=== PATIENT | male | born 1945 | race Caucasian/White ===

== ENCOUNTER 2016-12-10 09:14 | Day surgery (SDC) | payer OTHER ==
[~2016-12-10 09:14] MED LIST: BUPIVACAINE 0.5% 30 ML SDV ONE; LIDOCAINE 1% 300 MG/30 ML SDV ONE; MIDAZOLAM 2 MG/2 ML VIAL IVP ONE; PROPOFOL 200 MG/20 ML VIAL ONE; ROCURONIUM 50 MG/5 ML VIAL ONE; fentaNYL 100 MCG/2 ML INJ ONE
[2016-12-10] MEDS ORDERED: ceFAZolin 2 GM/DEXTROSE 100 ML IV ONE (09:41)
--- NOTE | 2016-12-10 09:46 | PDGENHP ---
History and Physical History and Physical: HPI: 71 y/o male with h/o left groin bulge. Worse with activity, improves with rest. Pawan po normally, no change in bowel habits. PMHx: MS, CAD, RENE, HTN, elevated lipids PSHx: Pilonidal cyst excision Meds: NTG, Gilenya, Zantac, Norvasc, Lipitor, Diovan All: albumin, interferon, lisinopril PE: Alert, NAD RRR CTA B Abd soft, NTTP LIH, reducible A/P: LIH. Plan for open LIHR under MAC. Risks/benefits reviewed with patient and family. Risks of not operating explained, questions answered.
--- NOTE | 2016-12-10 10:01 | PDANEPAE ---
ANE History of Present Illness 71 year old male with Left Inguinal Hernia. PMH significant for CAD, HTN, RENE on CPAP nightly, obesity. His last cardiac catheterization was 12/10/2014. He has been on norvasc and diovan without complication. He denies URI last 6 weeks. He also has a history of multiple sclerosis however has not had any exacerbations in the last 6 weeks. ANE Past Medical History - Cardiovascular History Hx Hypertension: Yes Hx Arrhythmias: No Hx Chest Pain: No Hx Coronary Artery / Peripheral Vascular Disease: Yes Hx CHF / Valvular Disease: No Hx Palpitations: No - Pulmonary History Hx COPD: No Hx Asthma/Reactive Airway Disease: No Hx Recent Upper Respiratory Infection: No Hx Oxygen in Use at Home: No - Neurologic History Hx Cerebrovascular Accident: No Hx Seizures: No Hx Dementia: No - Endocrine History Hx Diabetes: No - Renal History Hx Renal Disorders: No - Liver History Hx Hepatic Disorders: No - Neurological & Psychiatric Hx Hx Neurological and Psychiatric Disorders: No - Cancer History Hx Cancer: No - Congenital Disorder History Hx Congenital Disorders: No - GI History Hx Gastrointestinal Disorders: No - Chronic Pain History Chronic Pain: Yes (LT ING HERNIA) ANE Review of Systems - Exercise capacity METS (RN): 4 METS ANE Patient History - Allergies Allergies/Adverse Reactions: albumin human [From Rebif (with albumin)] Allergy (Verified 11/29/16 10:18) interferon beta-1a [From Rebif (with albumin)] Allergy (Verified 11/29/16 10:18) - Home Medications Home Medications: Aspirin [Aspirin 81mg (*)] 81 mg PO DAILY 12/10/14 [Last Taken 12/09/14] Atorvastatin Calcium [Lipitor 40 mg (*)] 40 mg PO DAILY06 12/10/14 [Last Taken 12/10/16 06:00] Fingolimod HCl [Gilenya] 0.5 mg PO HS 12/10/14 [Last Taken 12/09/14] Multivitamins [Multivitamin (*)] 1 each PO DAILY 12/10/14 [Last Taken Unknown] Sildenafil Citrate [Viagra 50 MG (*)] 50 mg PO AD PRN 12/10/14 [Last Taken Unknown] Valsartan/Hydrochlorothiazide [Diovan Hct 160-25 mg Tablet] 2 each PO DAILY AT 8PM 12/10/14 [Last Taken 12/09/14] amLODIPine BESYLATE [Norvasc 5 mg (*)] 5 mg PO DAILY06 12/10/14 [Last Taken ] Herbal Drugs DAILY 11/29/16 [Last Taken Unknown] - Smoking Hx Smoking Status: Never smoked ANE Labs/Vital Signs - Vital Signs Height: 165.1 cm Weight: 97.522 kg ANE Physical Exam - Airway Mallampati Score: Class 1 Mouth exam: normal dental/mouth exam, poor dentition - Pulmonary Pulmonary: no respiratory distress - Cardiovascular Cardiovascular: regular rate and rhythym - ASA Status ASA Status: III ANE Anesthesia Plan Urgent/Emergent Case: Diana landeros completed preop but documented later for safe timely pt care
[2016-12-10 10:02] VITALS: PULSE 81
[2016-12-10] MEDS ORDERED: LIDOCAINE 1% 2 ML INJ ONE (10:03)
[2016-12-10] MEDS ORDERED: LR 1,000 ML IV ONE (10:20)
[2016-12-10] MEDS ORDERED: LIDOCAINE 1% 2 ML INJ ID PRN (10:20)
[2016-12-10] MEDS ORDERED: PROPOFOL/EMULSION 500 MG/50 ML BOTTLE IV ONE (10:35)
[2016-12-10] MEDS ORDERED: NALOXONE HCL 0.4 MG/ML INJ IVP PRN (11:39)
[2016-12-10] MEDS ORDERED: OXYCODONE/APAP 5/325 TAB PO PRN (11:39)
[2016-12-10] MEDS ORDERED: ONDANSETRON 4 MG/2 ML VIAL IVP PRN (11:39)
[2016-12-10] MEDS ORDERED: LR 500 ML IV PRN (11:39)
[2016-12-10] MEDS ORDERED: fentaNYL 100 MCG/2 ML INJ IVP PRN (11:39)
--- NOTE | 2016-12-10 11:40 | POSTANESTH ---
Post Anesthetic Evaluation Cardiovascular Status: Normal, Stable Respiratory Status: Normal, Stable Level of Consciousness/Mental Status: Mildly Sleepy, Arousable Pain Control: Adequate, Prn Tx Ordered Nausea/Vomiting Control: Adequate, Prn Tx Ordered Complications Possibly Related to Anesthesia: None Noted
--- NOTE | 2016-12-10 12:02 | POSTOPPROG ---
Post Op Note Date of Operation: 12/10/16 Surgeon: Kyler Adan Anesthesiologist: Dr. Sherwood Anesthesia: IV Sedation Pre-op Diagnosis: LIH Post-op Diagnosis: LIH Procedure: LIHR Findings: Large direct hernia Inf/Abcess present in the surg proc area at time of surgery?: No EBL: Minimal
[2016-12-10 12:15] VITALS: TEMP 97.7
[2016-12-10 12:16] VITALS: RESP 6
--- NOTE | 2016-12-10 12:58 | GOP ---
[f rep st] OPERATIVE REPORT DATE OF OPERATION: 12/10/2016 SURGEON: Deepak Adan MD ANESTHESIA: Monitored anesthetic care. ANESTHESIOLOGIST: Emerita Franco MD. PREOPERATIVE DIAGNOSIS: Left inguinal hernia. POSTOPERATIVE DIAGNOSIS: Left inguinal hernia. PROCEDURE PERFORMED: Open left inguinal hernia repair. FINDINGS: Patient had a large direct hernia. No other lesions were identified. ESTIMATED BLOOD LOSS: 20 cc. INDICATIONS: 71-year-old male with a history of left groin bulge. Risks and benefits of procedure were discussed with patient's family. Their questions were answered. They wished to proceed. DESCRIPTION OF PROCEDURE: The patient was placed in the supine position. After the induction of ad equate IV sedation, the patient was prepped and draped in the standard surgical fashion. Marcaine 0 .5% was injected throughout the left groin for local anesthesia. An oblique incision was made and ca rried to the subcutaneous tissue using cautery. The external oblique was incised in the direction o f its fibers. The cord was then surrounded at the pubic tubercle. The cord structures were then car efully dissected, preserving the vas and vessels. The hernia was then dissected down to preperitone al fat and reduced. A plug was fashioned from Marlex and secured using 2-0 Vicryl interrupted. An onlay patch was created and affixed using 2-0 Prolene. Enough room was seen for the cord and an ins trument tip. Good hemostasis was noted. The external oblique and Stanley's were approximated using 3 -0 Vicryl in a running fashion. Skin was closed with 5-0 Biosyn subcuticular. The wound was steril puneet dressed, the patient was taken to the post-anesthesia care unit in stable condition. COMPLICATIONS: None. DRAINS: None. /[id number]/MODL
[2016-12-10 14:12] VITALS: BP 133/68; O2SAT 95
== END 2016-12-10 14:01 | disposition home or self-care (01) ==
LOC: FSGY 09:14
PROVIDERS: ATTEND Surgery
PROC: 0YU60JZ Supplement Left Inguinal Region with Synthetic Substitute, Open Approach (ICD-10-PCS; principal; 2016-12-10 10:30)
DX: K40.90 Unilateral inguinal hernia, without obstruction or gangrene, not specified as recurrent (principal); G35 Multiple sclerosis; I25.10 Atherosclerotic heart disease of native coronary artery without angina pectoris; G47.33 Obstructive sleep apnea (adult) (pediatric); I10 Essential (primary) hypertension; E78.5 Hyperlipidemia, unspecified
CPT/HCPCS: C1781; J0690; J2250; J2704; J3010

== ENCOUNTER 2017-10-25 20:23 | Emergency (ER) | payer OTHER ==
--- NOTE | 2017-10-25 20:53 | EDPHY ---
H & P Time Seen by Provider: 10/25/17 20:40 HPI/ROS: CHIEF COMPLAINT: Puncture wound left middle digit distal phalanx HISTORY OF PRESENT ILLNESS: 72 year-old male with out-of-date tetanus complaining of puncture wound to his left middle digit distal phalanx when a high strength spring from a trampoline retracted and impacted in this area. Just prior to arrival the spring was embedded in his tissue and he was unable to remove it. He has subsequently been able to remove the spring. PHYSICAL EXAM (Prior to examination, patient consented to physical exam, hands were washed and my usual and customary physical exam procedures followed) 1) GENERAL: Well-developed, well-nourished, alert and oriented. Appears to be in no acute distress. 2) HEAD: Normocephalic 3) HEENT: sclera anicteric 4) LUNGS: Breathing comfortably. 5) SKIN: Left middle digit distal phalanx palmar aspect non through and through puncture wound with small skin avulsion measuring 5 mm. Tender. 6) MUSCULOSKELETAL: FDP, FDS function intact. 7) NEUROLOGIC: Full sensation, two-point discrimination intact. Smoking Status: Never smoked Constitutional: Initial Vital Signs Temperature (C) 37.0 C 10/25/17 20:25 Heart Rate 84 10/25/17 20:25 Respiratory Rate 18 10/25/17 20:25 Blood Pressure 147/59 H 10/25/17 20:25 O2 Sat (%) 95 10/25/17 20:25 O2 Delivery Mode Room Air Allergies/Adverse Reactions: albumin human [From Rebif (with albumin)] Allergy (Verified 10/25/17 20:29) interferon beta-1a [From Rebif (with albumin)] Allergy (Verified 10/25/17 20:29) Home Medications: Medication Instructions Recorded Aspirin [Aspirin 81mg (*)] 81 mg PO DAILY 12/10/14 Atorvastatin Calcium [Lipitor 40 40 mg PO DAILY06 12/10/14 mg (*)] Fingolimod HCl [Gilenya] 0.5 mg PO HS 12/10/14 Multivitamins [Multivitamin (*)] 1 each PO DAILY 12/10/14 Sildenafil Citrate [Viagra 50 MG 50 mg PO AD PRN 12/10/14 (*)] Valsartan/Hydrochlorothiazide 2 each PO DAILY AT 8PM 12/10/14 [Diovan Hct 160-25 mg Tablet] amLODIPine BESYLATE [Norvasc 5 mg 5 mg PO DAILY06 12/10/14 (*)] Nitroglycerin [Nitrostat 0.4 mg 0.4 mg SL ONCE PRN #0 btl 12/11/14 (*)] Herbal Drugs DAILY 11/29/16 Cephalexin [Keflex] 500 mg PO TID 5 Days cap 10/25/17 MDM/Departure - [facility] Imaging Results: Imaging Impressions Finger X-Ray 10/25/17 20:51 Impression: 1. Tiny possible radiopaque 1 mm foreign body along the palmar aspect left third digit distal phalanx region versus artifact. Images reviewed myself Procedures: Procedure: Laceration repair. I explained the indications, risks and benefits for both laceration repair and anesthetic administration. Verbal consent was obtained from the patient. The puncture wound on the left middle digit was anesthetized using 0.5% bupivicaine without epinephrine digital nerve block. ED Course/Re-evaluation: 8:50 p.m.: Will obtain x-ray to evaluate radiopaque foreign body and/or fracture. 9:22 p.m.: Re-evaluation. On x-ray the patient is noted to have a small Review radiopaque foreign body on the palmar aspect. His wound has been copiously irrigated. This wound does contain a puncture wound and a small skin avulsion. Surgicel has been applied to the skin avulsion resulting in hemostasis. Given the puncture wound nature of his injury and this very small radial radiopaque foreign body, I am recommending healing via secondary intention. A digital nerve block was applied by by myself for wound cleaning purposes. I am starting him on prophylactic antibiotics. I recommend follow up with [facility] surgery Dr. Ketan Marcos or Dr. Alisa Diez. He has no signs of infection at this time. He has been given infection precautions instructions. All questions and concerns addressed by myself. Usual and customary discharge precautions instructions provided. Care of patient under supervision of [secondary] supervising physician Dr Pineda. - Depart Disposition: Home, Routine, Self-Care Clinical Impression: Avulsion, skin, Puncture wound Condition: Good Instructions: Cephalexin (By mouth), Puncture Wound (ED), Skin Avulsion (ED) Additional Instructions: Return to the ER if you develop redness, swelling, discharge, warmth to the wound, red streaks going up your arm, or any other symptoms that concern you. Prescriptions: Cephalexin [Keflex] 500 mg PO TID 5 Days cap Referrals: Ketan Marcos MD [Medical Doctor] - 2-3 days, call for appt.
[2017-10-25] MEDS ORDERED: CEPHALEXIN 500MG PREPACK#4 BTL TAKEHOME ONE (21:26)
[2017-10-25 21:53] VITALS: BP 122/60
== END 2017-10-25 21:53 | disposition home or self-care (01) ==
PROC: 3E0T3BZ Introduction of Anesthetic Agent into Peripheral Nerves and Plexi, Percutaneous Approach (ICD-10-PCS; principal; 2017-10-25)
DX: S61.233A Puncture wound without foreign body of left middle finger without damage to nail, initial encounter (principal); Z79.82 Long term (current) use of aspirin; W22.8XXA Striking against or struck by other objects, initial encounter

== ENCOUNTER 2018-02-10 | Inpatient (IN) | payer OTHER | END 2018-02-16 12:45 | disposition home or self-care (01) | DRG 234 | PROVIDERS: ADMIT Thoracic Surgery (Cardiothoracic Vascular Surgery) | PROC: B2111ZZ Fluoroscopy of Multiple Coronary Arteries using Low Osmolar Contrast (ICD-10-PCS; 2018-02-10) | PROC: B2151ZZ Fluoroscopy of Left Heart using Low Osmolar Contrast (ICD-10-PCS; 2018-02-10) | PROC: 5A1221Z Performance of Cardiac Output, Continuous (ICD-10-PCS; principal; 2018-02-12) | PROC: 021209W Bypass Coronary Artery, Three Arteries from Aorta with Autologous Venous Tissue, Open Approach (ICD-10-PCS; principal; 2018-02-12) | PROC: 02100Z9 Bypass Coronary Artery, One Artery from Left Internal Mammary, Open Approach (ICD-10-PCS; principal; 2018-02-12) | PROC: 06BQ4ZZ Excision of Left Saphenous Vein, Percutaneous Endoscopic Approach (ICD-10-PCS; principal; 2018-02-12) | DX: I25.10 Atherosclerotic heart disease of native coronary artery without angina pectoris (principal); D62 Acute posthemorrhagic anemia; I65.23 Occlusion and stenosis of bilateral carotid arteries; I10 Essential (primary) hypertension; E04.1 Nontoxic single thyroid nodule; I99.8 Other disorder of circulatory system; E78.5 Hyperlipidemia, unspecified; G47.33 Obstructive sleep apnea (adult) (pediatric); Z95.5 Presence of coronary angioplasty implant and graft | CPT/HCPCS: 82435-PO; 82565-PO; 82947-PO; 83605-PO; 84132-PO; 84295-PO; 84520-PO; 85014-PO; 97116-GP; 97162-GP; 97165-GO; 97530-GO; 97535-GO; C1753; C1760; C1769; C1887; J0153; J0282; J0583; J0690; J1100; J1170; J1265; J1644; J1815; J1940; J2001; J2150; J2250; J2260; J2270; J2370; J2405; J2440; J2704; J2720; J2765; J2930; J3010; J3475; J3480; J7060; P9041; Q9967 ==

== ENCOUNTER → 2018-02-25 | Outpatient (CLI) | payer OTHER | LOC: FIMAGING 09:23 | PROVIDERS: ATTEND Thoracic Surgery (Cardiothoracic Vascular Surgery) | DX: J90 Pleural effusion, not elsewhere classified (principal); Z95.1 Presence of aortocoronary bypass graft ==

== ENCOUNTER → 2018-03-11 | Outpatient (CLI) | payer OTHER | LOC: FIMAGING 09:45 | PROVIDERS: ATTEND Thoracic Surgery (Cardiothoracic Vascular Surgery) | DX: Z98.890 Other specified postprocedural states (principal); Z95.1 Presence of aortocoronary bypass graft ==